=== PATIENT | male | born 1985 | race Caucasian/White ===

== ENCOUNTER 2024-08-13 20:39 | Emergency (ER) | payer OTHER ==
[~2024-08-13] VITALS: Ht 198.1 cm; Wt 183.7 kg
[~2024-08-13 20:39] MED LIST: CEPHALEXIN500 MG PO; DOXYCYCLINE HY100 MG PO; LEVOTHYROXINE125 MCG PO; LOSARTAN-HCTZ1 EAC1 PO; METOPROLOL SUC100 MG PO; TAMSULOSIN HCL0.4 MG PO; VITAMIN D21250 MCG
[2024-08-13 21:09] LABS: BASOPHILS 1.1 % (0-2); EOSINOPHILS 3.5 % (0-6); HEMATOCRIT 46.2 % (35.0-50.0); HEMOGLOBIN 16.1 g/dL (12.0-18.0); LYMPHOCYTES 32.3 % (24-44); MCHC 34.9 g/dl (30-36); MCV 88.9 fl (81-99); MONOCYTES 7.5 % (0-12); NEUTROPHILS 55.6 % (39-80); PLATELET COUNT 269 K/uL (140-440); RDW 14.3 (10.5-15.0)
[2024-08-13 21:09] LABS: BILIRUBIN, URINE NEGATIVE (negative); BLOOD/HGB, URINE LARGE (Negative); KETONE, URINE NEGATIVE (Negative); LEUK ESTERASE, URINE NEGATIVE (negative); NITRITE, URINE NEGATIVE (negative); PH, URINE 5.5 (5-7)
[2024-08-13 21:15] LABS: EPITHELIAL CELLS, URINE SQUAMOUS 1+ /lpf (0-1+); RED BLOOD CELLS, URINE >50 /hpf (0-5)
[2024-08-13] MEDS ORDERED: ondansetron HCL 4 MG/2 ML VIAL IV ONE (21:15)
[2024-08-13] MEDS ORDERED: HYDROmorphone HCL 1 MG/ML SYR IV PRN (21:15)
[2024-08-13] MEDS ORDERED: KETOROLAC TROMETHAMINE 30 MG/ML VIAL IV ONE (21:15)
[2024-08-13] MEDS ORDERED: FAMOTIDINE 20 MG/ 2 ML VIAL IV ONE (21:15)
[2024-08-13] MEDS ORDERED: LACTATED RINGER'S 1,000 ML IV ONE (21:15)
[2024-08-13 21:16] LABS: BACTERIA, URINE RARE /hpf (negative); CASTS, URINE NONE SEEN \\lpf; COLLECTION TYPE, URINE CLEAN CATCH; CRYSTALS, URINE NONE SEEN (0-1+); REFLEX CULTURE, URINE No (No); WHITE BLOOD CELLS, URINE 0-1 /HPF (0-5)
[2024-08-13 21:18] LABS: ALBUMIN 4.3 g/dL (3.4-5.0); ALBUMIN/GLOBULIN RATIO 1.13 (1.1-2.4); ANION GAP 13.6 (7-21); BILIRUBIN, TOTAL 0.7 ng/dL (0.2-1.0); BUN/CREATININE RATIO 8.52 (6.0-28.6); CALCIUM 8.9 mg/dL (8.5-10.1); CREATININE, SERUM 1.29 mg/dL (0.70-1.30); POTASSIUM 3.6 mmol/L (3.5-5.1); PROTEIN, TOTAL 8.1 g/dL (6.4-8.2)
[2024-08-13] MEDS ORDERED: TAMSULOSIN HCL 0.4 MG CAP PO ONE (22:00)
[2024-08-13] MEDS ORDERED: HYDROCODON-ACE1 EA10 PO (22:57)
[2024-08-13] MEDS ORDERED: FLOMAX0.4 MG PO (22:57)
[2024-08-13] MEDS ORDERED: HYDROCODONE BIT/ACETAMINOPHEN 5/325 MG 1 TAB HOME.PACK PO ONE (23:00)
[2024-08-13 23:09] VITALS: BP 151/86
== END 2024-08-13 23:16 | disposition home or self-care (01) ==
LOC: ED 20:39
PROVIDERS: Internal Medicine
DX: N13.2 Hydronephrosis with renal and ureteral calculous obstruction (principal); I10 Essential (primary) hypertension; E66.9 Obesity, unspecified; E03.9 Hypothyroidism, unspecified; Z88.2 Allergy status to sulfonamides; Z79.890 Hormone replacement therapy; Z79.899 Other long term (current) drug therapy
CPT/HCPCS: 36415; 74176; 80053; 81001; 83690; 85025; 96361; 96374; 96375; 96376; 99284-25; A9270; J1171; J1885; J2405; J7121

== ENCOUNTER 2024-11-26 14:13 | Emergency (ER) | payer OTHER ==
[~2024-11-26] VITALS: Ht 198.1 cm; Wt 203.2 kg
[~2024-11-26 14:13] MED LIST changes: +FLOMAX0.4 MG PO; +HYDROCODON-ACE1 EA10 PO
[2024-11-26] MEDS ORDERED: CLINDAMYCIN HC300 MG PO (14:53)
[2024-11-26 15:12] LABS: BASOPHILS 0.4 % (0-2); HEMATOCRIT 41.7 % (35.0-50.0); MCH 31.6 (27-36); MCHC 35.9 g/dl (30-36); MCV 88.2 fl (81-99); MONOCYTES 10.1 % (0-12); NEUTROPHILS 74.5 % (39-80); PLATELET COUNT 194 K/uL (140-440); RBC 4.73 M/ul (4.3-5.7); RDW 14.2 (10.5-15.0)
[2024-11-26] MEDS ORDERED: DOXYCYCLINE HY100 MG PO (17:16)
[2024-11-26] MEDS ORDERED: TRAMADOL HCL50 MG PO (17:18)
[2024-11-26 17:28] VITALS: BP 125/68
== END 2024-11-26 17:29 | disposition home or self-care (01) ==
LOC: ED 14:13
PROVIDERS: Family Medicine
DX: L03.116 Cellulitis of left lower limb (principal); E66.9 Obesity, unspecified; I10 Essential (primary) hypertension; N40.0 Benign prostatic hyperplasia without lower urinary tract symptoms; E03.9 Hypothyroidism, unspecified; Z88.2 Allergy status to sulfonamides; Z79.899 Other long term (current) drug therapy
CPT/HCPCS: 36415; 85025; 85379; 93971; 99284-25